=== PATIENT | female | born 1940 | race Two or more races ===

== ENCOUNTER 2017-12-21 14:12 | Inpatient (IN) | payer MEDICARE, MEDICAID ==
[~2017-12-21] VITALS: Ht 157.5 cm; Wt 89.8 kg
[2017-12-21 14:44] LABS: EOSINOPHILS # (AUTO) 0.2 /CMM (0.0-0.7); EOSINOPHILS % (AUTO) 2.9 % (0.0-6.0); HEMATOCRIT 37 % (33-45); HEMOGLOBIN 12.8 g/dL (11.5-14.8); LYMPHOCYTES # (AUTO) 3.1 /CMM (0.8-4.8); LYMPHOCYTES % (AUTO) 43.9 % (20.0-44.0); MEAN CORPUSCULAR HEMOGLOBIN 31 PG (26.0-33.0); MEAN CORPUSCULAR HGB CONC 34 g/dl (31.0-36.0); MEAN CORPUSCULAR VOLUME 92 fL (82-100); MONOCYTES # (AUTO) 0.5 /CMM (0.1-1.30); MONOCYTES % (AUTO) 7.5 % (2.0-12.0); NEUTROPHILS # (AUTO) 3.3 /CMM (1.8-8.9); NEUTROPHILS % (AUTO) 45.7 % (43.0-81.0); PLATELET COUNT (AUTO) 219 /CMM (150-450); RDW COEFFICIENT OF VARIATION 13.1 (11.5-15.0); RED BLOOD CELL COUNT(AUTO) 4.08 MIL/uL (4.0-5.2); WHITE BLOOD COUNT (AUTO) 7.1 K/uL (4.3-11.0)
[2017-12-21 14:54] LABS: CALCIUM, SERUM 8.8 mg/dL (8.5-10.1); CARBON DIOXIDE 29 mmol/L (21-32); CHLORIDE 105 mmol/L (98-107); GLUCOSE 96 mg/dL (74-106); POTASSIUM 3.9 mmol/L (3.5-5.1); SODIUM SERUM 140 mmol/L (136-145); UREA NITROGEN, BLOOD 18 mg/dL (7-18)
[2017-12-21] MEDS ORDERED: ASPIRIN 325 MG TABLET ONE (14:56)
[2017-12-21 14:58] LABS: INR 0.92 (0.85-1.15)
[2017-12-21] MEDS ORDERED: ASPIRIN 325 MG TABLET PO ONE (15:00)
[2017-12-21 15:02] LABS: TROPONIN I < 0.017 ng/mL (0.00-0.056)
[2017-12-21 15:07] LABS: ALANINE AMINOTRANSFERASE 20 U/L (12-78); ALBUMIN 3.3 g/dL (3.4-5.0); ALKALINE PHOSPHATASE 85 U/L (46-116); ASPARTATE AMINOTRANSFERASE 15 U/L (15-37); B-TYPE NATRIURETIC PEPTIDE 146 PG/ML (0-125); BILIRUBIN,DIRECT 0.1 mg/dL (0.0-0.2); BILIRUBIN,TOTAL 0.2 mg/dL (0.2-1.0); TOTAL PROTEIN, SERUM 7.1 g/dL (6.4-8.2)
[2017-12-21] MEDS ORDERED: RANI150T8 PO (15:54)
[2017-12-21] MEDS ORDERED: [UNRECOGNIZED DRUG - CODE] TP (15:54)
[2017-12-21] MEDS ORDERED: DICL75TA5 PO (15:54)
[2017-12-21] MEDS ORDERED: SIMV40TA5 PO (15:54)
[2017-12-21] MEDS ORDERED: BENA20TA2 PO (15:54)
[2017-12-21] MEDS ORDERED: ALEN70TA45 PO (15:54)
[2017-12-21] MEDS ORDERED: ESTR42.5 VG (15:54)
[2017-12-21] MEDS ORDERED: ACET-73 PO (15:54)
[2017-12-21] MEDS ORDERED: ASPI-1169 PO (15:54)
[2017-12-21] MEDS ORDERED: TRAM50TA2 PO (15:54)
[2017-12-21] MEDS ORDERED: CALC-168 PO (15:54)
[2017-12-21] MEDS ORDERED: CLOT15CR63 TP (15:54)
[2017-12-21] MEDS ORDERED: ACETAMINOPHEN 325 MG TABLET PO PRN (16:00)
[2017-12-21] MEDS ORDERED: TEMAZEPAM 15 MG CAPSULE PO PRN (16:00)
[2017-12-21] MEDS ORDERED: MAG HYDROX/AL HYDROX/SIMETH 30 ML UDC PO PRN (16:00)
[2017-12-21] MEDS ORDERED: MAGNESIUM HYDROXIDE 30 ML UDC PO PRN (16:00)
[2017-12-21] MEDS ORDERED: DICLOFENAC SODIUM 25 MG TABLET.DR PO PRN (16:00)
[2017-12-21] MEDS ORDERED: TRAMADOL HCL 50 MG TABLET PO PRN (16:00)
[2017-12-21] MEDS ORDERED: HYDROCODONE/APAP 5/325MG 1 EACH TABLET PO PRN (16:00)
[2017-12-21] MEDS ORDERED: ONDANSETRON HCL/PF 4 MG/2 ML VIAL IVP PRN (16:00)
[2017-12-21 16:10] VITALS: BP 143/76
[2017-12-21] MEDS ORDERED: MORPHINE SULFATE INJ 4 MG/ML DISP.SYRIN IV PRN (16:30)
[2017-12-21] MEDS: ENOXAPARIN SODIUM 30 MG/0.3 ML DISP.SYRIN SQ SCH (16:57)
[2017-12-21] MEDS: CALCIUM CARB 600MG /VIT D 1 EACH TABLET PO SCH (16:57)
[2017-12-21] MEDS: CLOTRIMAZOLE 1% 15 GM TUBE TP SCH (17:45)
[2017-12-21 20:00] VITALS: BP 121/55
[2017-12-21 20:12] VITALS: BP 121/55
[2017-12-21] MEDS ORDERED: REGADENOSON 0.4 MG/5 ML DISP.SYRIN IVP ONE (20:30)
[2017-12-21] MEDS: SIMVASTATIN 40 MG TABLET PO SCH (22:33)
[2017-12-22] VITALS: BP 127/54
[2017-12-22 04:00] VITALS: BP 106/49
[2017-12-22 06:45] LABS: RDW COEFFICIENT OF VARIATION 13.9 (11.5-15.0)
[2017-12-22 07:01] LABS: WHITE BLOOD COUNT (AUTO) 6.7 K/uL (4.3-11.0)
[2017-12-22 07:02] LABS: HEMATOCRIT 37 % (33-45); HEMOGLOBIN 12.3 g/dL (11.5-14.8); MEAN CORPUSCULAR VOLUME 93 fL (82-100); RED BLOOD CELL COUNT(AUTO) 3.96 MIL/uL (4.0-5.2)
[2017-12-22 07:03] LABS: MEAN CORPUSCULAR HEMOGLOBIN 31 PG (26.0-33.0); MEAN CORPUSCULAR HGB CONC 33 g/dl (31.0-36.0); PLATELET COUNT (AUTO) 189 /CMM (150-450)
[2017-12-22 07:04] LABS: LYMPHOCYTES % (AUTO) 38.8 % (20.0-44.0); MONOCYTES % (AUTO) 9.2 % (2.0-12.0); NEUTROPHILS % (AUTO) 47.7 % (43.0-81.0)
[2017-12-22 07:05] LABS: BASOPHILS % (AUTO) 0.5 % (0.0-2.0); EOSINOPHILS % (AUTO) 3.8 % (0.0-6.0); LYMPHOCYTES # (AUTO) 2.6 /CMM (0.8-4.8); MONOCYTES # (AUTO) 0.6 /CMM (0.1-1.30); NEUTROPHILS # (AUTO) 3.2 /CMM (1.8-8.9)
[2017-12-22 07:06] LABS: EOSINOPHILS # (AUTO) 0.3 /CMM (0.0-0.7)
[2017-12-22 07:10] LABS: CHOLESTEROL 168 mg/dL (<200); HDL CHOLESTEROL 39 mg/dL (40-60); LDL 105 mg/dL (0-99); THYROID STIMULATING HORMONE 1.869 uIU/mL (0.358-3.74); TRIGLYCERIDES 171 mg/dL (30-150)
[2017-12-22 07:15] LABS: CALCIUM, SERUM 8.3 mg/dL (8.5-10.1); CARBON DIOXIDE 29 mmol/L (21-32); CHLORIDE 107 mmol/L (98-107); CREATININE 0.9 mg/dL (0.6-1.3); GLUCOSE 87 mg/dL (74-106); MAGNESIUM 2.1 mg/dL (1.8-2.4); PHOSPHORUS 4.2 mg/dL (2.5-4.9); POTASSIUM 4.2 mmol/L (3.5-5.1); SODIUM SERUM 141 mmol/L (136-145); UREA NITROGEN, BLOOD 17 mg/dL (7-18)
[2017-12-22 08:00] VITALS: BP 131/69
[2017-12-22 12:00] VITALS: BP 143/77
[2017-12-22] MEDS: ASPIRIN 81 MG TAB.CHEW PO SCH (13:42)
[2017-12-22] MEDS: CALCIUM CARB 600MG /VIT D 1 EACH TABLET PO SCH ×2 (13:42→17:19)
[2017-12-22] MEDS: BENAZEPRIL HCL 20 MG TABLET PO SCH (13:42)
[2017-12-22] MEDS: PANTOPRAZOLE 40 MG TABLET.DR PO SCH (13:43)
[2017-12-22] MEDS: CLOTRIMAZOLE 1% 15 GM TUBE TP SCH ×2 (13:43→17:22)
[2017-12-22 16:00] VITALS: BP 105/76
[2017-12-22 20:00] VITALS: BP 120/66
[2017-12-22] MEDS: ENOXAPARIN SODIUM 30 MG/0.3 ML DISP.SYRIN SQ SCH (21:08)
[2017-12-22] MEDS: SIMVASTATIN 40 MG TABLET PO SCH (21:20)
[2017-12-23] VITALS: BP_SYST 125; BP_DIAS 62; BP_DIAS 68
[2017-12-23 04:00] VITALS: BP 123/61
[2017-12-23 08:00] VITALS: BP 123/80
[2017-12-23] MEDS: PANTOPRAZOLE 40 MG TABLET.DR PO SCH (08:39)
[2017-12-23] MEDS: ASPIRIN 81 MG TAB.CHEW PO SCH (08:39)
[2017-12-23] MEDS: CALCIUM CARB 600MG /VIT D 1 EACH TABLET PO SCH (08:39)
[2017-12-23] MEDS: BENAZEPRIL HCL 20 MG TABLET PO SCH (08:40)
[2017-12-23] MEDS: CLOTRIMAZOLE 1% 15 GM TUBE TP SCH (08:40)
[2017-12-23 12:00] VITALS: BP 114/65
[2017-12-25] MEDS ORDERED: ALENDRONATE 70 MG TABLET PO SCH (09:00)
== END 2017-12-23 15:00 | disposition home or self-care (01) | DRG 206 ==
LOC: ER 14:13 → TELE1 15:42
PROVIDERS: ADMIT Nurse Practitioner Acute Care; ATTEND Nurse Practitioner Acute Care
DX: M94.0 Chondrocostal junction syndrome [Tietze] (principal); E44.1 Mild protein-calorie malnutrition; E66.9 Obesity, unspecified; E78.5 Hyperlipidemia, unspecified; Z68.35 Body mass index [BMI] 35.0-35.9, adult; I10 Essential (primary) hypertension; K21.9 Gastro-esophageal reflux disease without esophagitis; Z79.82 Long term (current) use of aspirin; Z79.899 Other long term (current) drug therapy; M19.90 Unspecified osteoarthritis, unspecified site; R73.03 Prediabetes
CPT/HCPCS: 36415; 71045-TC; 80048-TC; 80061-TC; 80076-TC; 83735-TC; 83880; 84100-TC; 84443-TC; 84484-TC; 85025-TC; 85730-TC; 87081-TC; 93307-TC; A4606; A9502; J1650; J2270; J2785; Z7610